=== PATIENT | male | born 1955 | race Two or more races ===

== ENCOUNTER 2020-05-08 01:15 | Emergency (ER) | payer SELFPAY ==
[~2020-05-08] VITALS: Ht 170.2 cm; Wt 118.0 kg
[2020-05-08 02:08] VITALS: BP 130/61
[2020-05-08] MEDS ORDERED: DEXAMETHASONE SOD PHOS 20 MG/5 ML VIAL. IM ONE (02:30)
[2020-05-08] MEDS ORDERED: diphenhydrAMINE HCL 25 MG CAPSULE PO ONE (02:30)
[2020-05-08] MEDS ORDERED: FAMOTIDINE 20 MG TABLET. PO ONE (02:30)
[2020-05-08] MEDS ORDERED: PRED20TA PO (02:38)
[2020-05-08] MEDS ORDERED: FAMO-63 PO (02:38)
[2020-05-08] MEDS ORDERED: DIPH25CA58 PO (02:38)
--- NOTE | 2020-05-08 02:39 | PHYS DOC ---
Past Medical History Past Medical History: Diabetes-Type II, High Cholesterol, Hypertension Past Medical History colitis Past Surgical History: No Surgical History Smoking Status: Never Smoker Alcohol Use: Occasionally Drug Use: None General Adult EDM: Chief Complaint: FACE PROBLEM HPI: HPI: Patient is a 64 year old male who presents POV with facial swelling. He has a PMH significant for DM2, HTN, hypercholesterolemia, colitis, and BPH. This morning he noticed itching in his hands and swelling of his index finger. At approximately 1600 he took a medication for colitis that he obtained in [place] because he was having some abdominal pain. He took the rest of his medications around 2300 and then went to bed. He woke up at 1130 with swelling of his eyes and mouth. He has not history of similar reactions. He has no known drug allergies but endorses seasonal allergies. He denies shortness of breath, swelling of his tongue, or difficulty swallowing. He also takes lisinopril, metformin, low dose ASA, and an unknown medication for high cholesterol Information obtained via assistance of language line staff interpreter Review of Systems: Review of Systems: Constitutional: Denies fever or chills Eyes: Denies redness or eye pain. Admits eye swelling. HENT: Denies nasal congestion, sore throat, dysphagia, or swelling in tongue Respiratory: Denies cough or shortness of breath Cardiovascular: Denies chest pain or palpitations GI: admits abdominal pain, Denies nausea, or vomiting, blood in stool : Denies dysuria or hematuria Integument: Admits itching in hands Complete systems were reviewed and found to be within normal limits, except as d ocumented in this note. Current Medications: Current Medications Medications (Trade) Dose Ordered Sig/Gena Start Time Stop Time Status Last Admin Dose Admin Dexamethasone Sodium Phosphate (Decadron) 10 mg 1X ONCE 05/08/20 02:30 05/08/20 02:31 DC Diphenhydramine HCl (Benadryl) 25 mg 1X ONCE 05/08/20 02:30 05/08/20 02:31 DC Famotidine (Pepcid) 20 mg 1X ONCE 05/08/20 02:30 05/08/20 02:31 DC Allergies: Allergies: Allergies Coded Allergies Type Severity Reaction Last Updated Verified No Known Drug Allergies 05/08/20 No Physical Exam: PE: Constitutional: Well developed, well nourished, no acute distress, non-toxic appearance HENT: Normocephalic, atraumatic. perioral edema present. no swelling of tongue o r oropharynx Eyes: PERRL, EOMI, conjunctiva normal. bilateral periorbital edema, Neck: Normal range of motion, no tenderness, supple, no stridor Lungs & Thorax: No respiratory distress, equal chest rise and fall Abdomen: Soft, no tenderness Skin: Warm, dry, bilateral palmar erythema Extremities: No tenderness, ROM intact, no edema of LE Neurologic: Alert and oriented X 3, normal motor function, normal sensory function, no focal deficits noted Psychologic: Affect normal, judgment normal Current Patient Data: Vital Signs: Vital Signs Date Time Temp Pulse Resp B/P (MAP) Pulse Ox O2 Delivery O2 Flow Rate FiO2 05/08/20 02:08 97.9 69 16 130/61 (84) 98 Room Air 97.9 EKG: EKG: [] Radiology/Procedures: Radiology/Procedures: [] Course & Med Decision Making: Course & Med Decision Making This 64 yo male presents to the ED with periorbital and perioral swelling. He has a PMH significant for HTN, DM, colitis, BPH, and hypercholesterolemia. He has no history of similar reactions and no known medication allergies. Today he took a new medication for colitis that he obtained in [place]. He also has a several year history of lisinopril use. He was advised to discontinue to use of lisinopril and the medication from [place] due to concern for allergic reaction. He was provided with Pepcid, Benadryl, and a burst course of prednisone for symptomatic relief. At this time he has no swelling of his tongue or difficulty breathing or dysphagia. He was advised that if he starts to have any of these symptoms he needs to return to the ED immediately. Discussed with the patient the need for strict diet control and adherence to current metformin dose due to the side effect of steroids elevating blood sugar. Patient stable for discharge with outpatient follow-up with PCP on Saturday. Discussed findings and plan with patient, who acknowledges understanding and agreement. El Disclaimer: El Disclaimer: This electronic medical record was generated, in whole or in part, using a voice recognition dictation system. Departure Departure Impression: Primary Impression: Allergic reaction Qualified Codes: T78.40XA - Allergy, unspecified, initial encounter Disposition: 01 DC HOME SELF CARE/HOMELESS Condition: STABLE Patient Instructions: Angioedema, [id number], Drug Allergy, [id number] Additional Instructions: Please stop LISINOPRIL and other new medication from [place] [facility] Famotidine (PEPCID) 20 Mg Tablet 20 MG PO BID for 5 Days, #10 TAB Prov: KELVIN LAY DO 05/08/20 Diphenhydramine Hcl (BENADRYL) 25 Mg Capsule 1 CAP PO Q4-6HRS PRN for ITCHING, #20 CAP 0 Refills Prov: KELVIN LAY DO 05/08/20 Prednisone (PREDNISONE) 20 Mg Tablet 2 TAB PO DAILY, #8 TAB Start this medication tomorrow, Saturday05/09/20 Prov: KELVIN LAY DO 05/08/20 KELVIN LAY DO May 08, 2020 02:38
== END 2020-05-08 02:52 | disposition home or self-care (01) ==
LOC: ER 01:15
DX: R60.0 Localized edema (principal); T50.995A Adverse effect of other drugs, medicaments and biological substances, initial encounter; R10.9 Unspecified abdominal pain; E11.9 Type 2 diabetes mellitus without complications; E78.00 Pure hypercholesterolemia, unspecified; I10 Essential (primary) hypertension; Y92.89 Other specified places as the place of occurrence of the external cause
CPT/HCPCS: 96372; 99283; J1100; Q0163

== ENCOUNTER 2020-11-14 13:27 | Emergency (ER) | payer SELFPAY ==
[~2020-11-14] VITALS: Ht 177.8 cm; Wt 91.3 kg
[~2020-11-14 13:27] MED LIST: DIPH25CA58 PO; FAMO-63 PO; PRED20TA PO
[2020-11-14 15:11] LABS: INFLUENZA A PATIENT NEGATIVE (NEGATIVE); INFLUENZA B PATIENT NEGATIVE (NEGATIVE)
--- NOTE | 2020-11-14 15:12 | RAD ---
Exam: Chest one view INDICATION: Cough for 4 days TECHNIQUE: Frontal view of the chest Comparisons: None FINDINGS: The cardiomediastinal silhouette and pulmonary vessels are within normal limits. The lung and pleural spaces are clear. IMPRESSION: No acute cardiopulmonary process. Electronically signed by: iGla Devi MD (11/14/2020 3:10 PM) [facility]
[2020-11-14 15:18] VITALS: BP 136/66
--- NOTE | 2020-11-14 15:32 | ED.ADGEN ---
Past Medical History Past Medical History: Diabetes-Type II, High Cholesterol, Hypertension Past Surgical History: Cholecystectomy, Other Additional Past Surgical Histo: CARPAL TUNNEL,SHOULERS Smoking Status: Never Smoker Alcohol Use: Occasionally General Adult EDM: Chief Complaint: COUGH HPI: HPI: Patient is a 65 year old male who presents to the emergency department with complaints of a dry cough and generalized back pain for the last 4 days. Patient states his symptoms began after laying on his back at work. He denies any fever, sore throat, headache, runny nose, nasal congestion, chest pain, palpitations, abdominal pain, shortness of breath, nausea, vomiting, diarrhea, or loss of taste/smell. Patient denies any known exposure to COVID-19. He states that he has received both doses of the [email or web address] Covid immunization. He rates the pain a 1 out of 10 on the pain scale, he denies any alleviating factors, the pain is worse with movement. Patient is Maltese-speaking only therefore the Rare Pink language used by nursing staff to translate with the patient. Review of Systems: Review of Systems: Complete ROS is negative unless otherwise noted in HPI. Allergies: Allergies: Allergies Coded Allergies Type Severity Reaction Last Updated Verified morphine Allergy Unknown UNKNOWN 11/14/20 Yes Physical Exam: PE: See Above Constitutional: Well developed, well nourished, no acute distress, non-toxic appearance. [] HENT: Normocephalic, atraumatic, bilateral external ears normal, nose normal. [] Eyes: PERRLA, EOMI, conjunctiva normal, no discharge. [] Neck: Normal range of motion, no stridor. [] Cardiovascular:Heart rate regular rhythm Lungs & Thorax: Respirations even and unlabored, no retractions, no respiratory distress Abdomen: soft, no tenderness Skin: Warm, dry, no erythema, no rash. [] Extremities: No cyanosis, ROM intact, no edema. [] Neurologic: Alert and oriented X 3, no focal deficits noted. [] Psychologic: Affect normal, judgement normal, mood normal. [] Current Patient Data: Labs: Laboratory Tests Test 11/14/20 14:15 Influenza Type A Antigen Negative (NEGATIVE) Influenza Type B Antigen Negative (NEGATIVE) SARS-CoV-2 Antigen (Rapid) Positive (NEGATIVE) *A Vital Signs: Vital Signs Date Time Temp Pulse Resp B/P (MAP) Pulse Ox O2 Delivery O2 Flow Rate FiO2 11/14/20 15:18 64 15 136/66 (89) 99 Room Air 11/14/20 13:42 99.0 99.0 EKG: EKG: [] Heart Score: C/O Chest Pain: No Radiology/Procedures: Radiology/Procedures: PROCEDURE: CHEST AP ONLY Exam: Chest one view INDICATION: Cough for 4 days TECHNIQUE: Frontal view of the chest Comparisons: None FINDINGS: The cardiomediastinal silhouette and pulmonary vessels are within normal limits. The lung and pleural spaces are clear. IMPRESSION: No acute cardiopulmonary process. Electronically signed by: Gila Devi MD (11/14/2020 3:10 PM) [facility] Course & Med Decision Making: Course & Med Decision Making Pertinent Labs and Imaging studies reviewed. (See chart for details) Patient is a 65-year-old male who presented to the emergency department with complaints of a dry cough and back pain for 4 days. Chest x-ray revealed no acute findings. Patient's influenza testing was negative. His COVID-19 result was positive. I advised the patient of his diagnosis of COVID-19. I encouraged him to increase clear fluids, take Tylenol and ibuprofen as needed for pain or fever. I instructed him to return to the ER if his breathing became labored or his temperature did not respond to medications. Patient was given COVID-19 and URI instructions in Maltese. Patient verbalized an understanding of home care, medications, follow-up, and re turn to ED instructions and was in agreement with the plan of care. Dragon Disclaimer: El Disclaimer: This electronic medical record was generated, in whole or in part, using a voice recognition dictation system. Departure Departure Impression: Primary Impression: COVID-19 Disposition: HOME / SELF CARE / HOMELESS Condition: STABLE Referrals: NO PCP (PCP) Patient Instructions: Cough, Adult, [id number] Additional Instructions: Definicin Se le realiz la prueba de deteccin del COVID-19 o se le diagnostic dicha enfermedad. Es kim infeccin ocasionada por un nuevo tipo de coronavirus. En la mayora de los casos, el COVID-19 provoca sntomas similares a los del resfriado. En algunas personas, puede ocasionar sntomas ms graves, mary problemas respiratorios. No existe un tratamiento para el virus COVID-19. El cuerpo elimina la infeccin con el tiempo. El cuidado personal ayuda a aliviar el malestar. Pasos que debe seguir 1. Cuidados personales Descanse cuando sea necesario. Los hbitos saludables pueden ayudarlo a sentirse mejor. Algunas medidas para lograr cambios incluyen lo siguiente: - Elija alimentos saludables, mary frutas y verduras. Katie abundante cantidad de agua raul todo el da. - Duerma zoya por la noche. - Si fuma, intente no hacerlo. [place] ayudar a mejorar la respiracin. - Evite el alcohol. 2. Mantenga sanos a los dems El virus puede contagiarse a otras personas. Cada vez que estornuda o tose, se liberan gotitas. Las gotitas pueden entrar en la boca, la nariz o los ojos de las personas que se encuentran cerca de usted y ocasionar la infeccin. Para reducir las probabilidades de contagiar el virus COVID-19 a otros, tenga en cuenta lo siguiente: - Qudese en casa el tiempo que el mdico se lo indique. Es posible que deba quedarse en casa hasta que la enfermedad desaparezca. Salga nicamente para recibir atencin mdica o en иван de urgencia. - Evite las reas pblicas, los eventos o el transporte pblico. No reanude las actividades laborales o escolares hasta que el mdico lo autorice. - Llame previamente si necesita asistir a un centro mdico. Avise que es posible que haya contrado COVID-19. [place] ayudar a que le indiquen adonde debe dirigirse. [place] pueden pedirle que use kim mscara facial cuando vaya al consultorio. Si llama a los servicios de asistencia mdica de urgencias, avseles que es posible que haya contrado COVID-19. Mientras est en casa: - Evite el contacto directo con otras personas. Mantngase a kim distancia aproximada de 2 metros. Si es posible, pasen la mayor parte del tiempo en mcgill separadas. - Use kim mscara facial si estar en contacto directo con otras personas, por ejemplo, si compartir kim habitacin o un vehculo. - Pida a alguien que limpie las superficies comunes de la casa. Limpie picaportes, mesadas y lavamanos con limpiadores domsticos todos los marrufo. - Al toser o estornudar, cbrase con un pauelo de papel. Despus de usarlo, de schelo de inmediato. Si no tiene un pauelo de papel, tosa o estornude en el pliegue del codo. - Lvese las rian con frecuencia. Lvese las rian despus de estornudar o toser. Lvese con agua y jabn raul, al menos, 20 segundos. Si no dispone de agua y jabn, use un limpiador de rian a base de alcohol. - No cocine para otros. Evite compartir objetos personales, mary tenedores, cucharas o cepillos de dientes. - Mientras est enfermo, evite el contacto directo con las mascotas. No hay indicios de si el virus se transmite a las mascotas. Esta es kim medida de seguridad que debe tenerse en cuenta hasta que se sepa ms acerca de victorino virus. El aislamiento puede ser frustrante. La interaccin social puede ayudar. Mantngase en contacto con amigos y familiares por telfono u otros medios tecnolgicos. Puede interactuar con otras personas en el hogar, rosalind mantenga kim distancia perales de aproximadamente 2 metros. Seguimiento Las pruebas para confirmar la presencia del COVID-19 pueden demorar algunos marrufo. Es posible que deba seguir los pasos mencionados anteriormente hasta que estn los resultados de las pruebas. Lo llamarn del consultorio mdico para saber si bledsoe habido algn cambio en de la cruz jones. Tambin le avisarn cuando pueda volver a estar cerca de otras personas. Problemas a los que debe estar atento Comunquese con el mdico si no se recupera segn lo previsto o si tiene problemas mary los siguientes: - Dificultad para respirar - Dolor de pecho - Empeoramiento de los sntomas Si anuel que tiene kim urgencia, llame a los servicios de asistencia mdica de urgencias de inmediato. As taken from [facility] [address] [place] [address] [facility] [address] [place] [address] [facility] [address] [facility] [place] [address] [facility] [address] [place] [address] [facility] [address] [place] [address] [facility] [address] [place] [address] [facility] [address] [place] [address] [facility] [address] [place] [address] [facility] [address] [place] [address] [facility] [address] [place] [address] MARITO PERKINS APRN Nov 14, 2020 15:31
== END 2020-11-14 15:42 | disposition home or self-care (01) ==
LOC: ER 13:27
DX: U07.1 COVID-19 (principal); E11.9 Type 2 diabetes mellitus without complications; E78.00 Pure hypercholesterolemia, unspecified; I10 Essential (primary) hypertension; Z90.49 Acquired absence of other specified parts of digestive tract; Z88.5 Allergy status to narcotic agent
CPT/HCPCS: 71045; 87426; 87804; 99284; U0003; U0005